=== PATIENT | female | born 1980 | race African-American/Black ===

== ENCOUNTER 2017-03-17 02:00 | Emergency (ER) | payer SELFPAY ==
[~2017-03-17 02:00] MED LIST: LISI-360 PO; NAPR500 PO
[2017-03-17 02:02] VITALS: BP 176/104; PULSE 95; RESP 18; TEMP 98.6; O2SAT 98
== END 2017-03-17 03:07 | disposition left against medical advice (07) ==
LOC: NED 02:00
DX: R68.89 Other general symptoms and signs (principal)
CPT/HCPCS: 99281

== ENCOUNTER 2017-10-27 22:34 | Emergency (ER) | payer SELFPAY ==
[~2017-10-27] VITALS: Ht 165.1 cm; Wt 63.0 kg
[2017-10-27 22:35] VITALS: BP 205/110; PULSE 87; RESP 18; TEMP 98.5; O2SAT 96
[2017-10-27 22:57] VITALS: BP 167/108; PULSE 88; RESP 18
[2017-10-27] MEDS ORDERED: AMLO10TA2 PO (23:00)
[2017-10-27] MEDS ORDERED: LABE300T PO (23:00)
[2017-10-27] MEDS ORDERED: LISI10TA3 PO (23:00)
[2017-10-27] MEDS ORDERED: LIDOCAINE 1%/EPINEPHrine 1:100,000 SOLN 20 ML VIAL INFIL ONE (23:15)
[2017-10-27] MEDS ORDERED: BUPIVACAINE/EPINEPHRINE 0.25% PF 30 ML VIAL NERV BLOCK ONE (23:15)
--- NOTE | 2017-10-27 23:16 | PD ---
HPI Chief Complaint: Oral / Dental Pain or Problem Time Seen by Provider: 22:55 Travel History International Travel<30 days: No Contact w/Intl Traveler<30days: No Traveled to known affect area: No History of Present Illness HPI 37-year-old white female presents to emergency department with complaints of dental pain. She states that she's having pain in her right lower mandible from a toothache. She was seen by her dentist earlier last week and had a tooth pulled. She has a prescription for amoxicillin and Lortab. She states the pain as not being relieved with the pain medicine. She states the pain is severe. No alleviating factor. Exacerbated by eating and cold. PFSH Past Medical History Cardiovascular Problems: Yes (htn) Diminished Hearing: No Hypertension: Yes ?: Not LMP: 10/11/17 : 3 Para: 3 Past Surgical History Section: Yes (X2) Social History Alcohol Use: Yes (OCCASSIONAL) Tobacco Use: Yes (1/2 PACK/DAY) Substance Use: Yes (marijuana/cocaine) Allergies-Medications (Allergen,Severity, Reaction): Coded Allergies: No Known Allergies (Unverified , 10/27/17) Reported Meds & Prescriptions Reported Meds & Active Scripts Active Reported Labetalol (Labetalol HCl) 300 Mg Tab 300 Mg PO DAILY Amlodipine (Amlodipine Besylate) 10 Mg Tab 10 Mg PO DAILY Lisinopril 10 Mg Tab 10 Mg PO DAILY Review of Systems General / Constitutional: No: Fever Eyes: No: Visual changes HENT: Positive: Dental Difficulties, No: Headaches, Sore Throat, Gingival Bleeding, Earache Cardiovascular: No: Chest Pain or Discomfort Respiratory: No: Shortness of Breath Gastrointestinal: No: Abdominal Pain Genitourinary: No: Dysuria Musculoskeletal: No: Pain Skin: No Rash Neurologic: No: Weakness Psychiatric: No: Depression Endocrine: No: Polydipsia Hematologic/Lymphatic: No: Easy Bruising Physical Exam Narrative GENERAL: Well-developed, well-nourished in no acute distress. Nontoxic appearing. HEAD: Normocephalic, atraumatic. EYES: Pupils equal round and reactive. Extraocular motions intact. No scleral icterus. No injection or drainage. ENT: TMs clear without erythema. The external auditory canals clear. Nose: clear . Posterior pharynx is pink and moist. No tonsillar edema or exudate. Uvula midline. Airway patent. Patient has a large dental carry in tooth #29. Positive pain to percussion. No gingival erythema. No facial swelling. NECK: Trachea midline.Supple, nontender, moves head freely. No central bony tenderness or spasm. CARDIOVASCULAR: Regular rate and rhythm without murmurs, gallops, or rubs. RESPIRATORY: Clear to auscultation. Breath sounds equal bilaterally. No wheezes , rales, or rhonchi. GASTROINTESTINAL: Abdomen soft, non-tender, nondistended. No hepato-splenomegaly , or palpable masses. No guarding. EXTREMITIES: No clubbing, cyanosis, or edema. No joint tenderness, effusion, or edema noted. BACK: Nontender without deformity or crepitance. No flank tenderness. Data Data Last Documented VS Vital Signs Date Time Temp Pulse Resp B/P (MAP) Pulse Ox O2 Delivery O2 Flow Rate FiO2 10/27/17 22:57 88 18 167/108 (127) Room Air 10/27/17 22:35 98.5 96 Orders Orders Lidocai-Epi 1%-1:100,000 Inj (Xylocaine- (10/27/17 23:15) Bupivacaine-Epi Pf 0.25% Inj (Sensorcain (10/27/17 23:30) MDM Medical Decision Making Medical Screen Exam Complete: Yes Emergency Medical Condition: Yes Medical Record Reviewed: Yes Differential Diagnosis MDM: Moderate Differential diagnoses: Dental abscess, dental caries, osteitis, cellulitis Narrative Course Patient is given a dental block with 0.25% Marcaine with epinephrine and 1% lidocaine with epinephrine. Procedures Procedure Narrative Dental block tooth #29 volar splint or a Diagnosis Primary Impression: Dentalgia Additional Impression: Dental caries Patient Instructions: General Instructions Additional Instructions: Rest. Saltwater gargles. Stonewall oil on cotton balls. 3 Advil every 6 hours. Continue her home medications.. follow-up with a dentist as soon as possible. And return to the ER if any problems. Med/Other Pt SpecificInfo: No Change to Meds Disposition: 01 DISCHARGE HOME Condition: Stable Ruben Lomas Oct 27, 2017 23:16
[2017-10-27] MEDS ORDERED: BUPIVACAINE/EPINEPHRINE 0.25% PF 10 ML VIAL NERV BLOCK ONE (23:30)
== END 2017-10-28 00:08 | disposition home or self-care (01) ==
LOC: NEPD 22:34
DX: K02.9 Dental caries, unspecified (principal); I10 Essential (primary) hypertension; F17.200 Nicotine dependence, unspecified, uncomplicated; Z79.899 Other long term (current) drug therapy
CPT/HCPCS: 64450